=== PATIENT | male | born 1990 | race Caucasian/White ===

== ENCOUNTER 2019-05-12 20:08 | Observation (INO) ==
[2019-05-12] MEDS ORDERED: Morphine Sulfate 2 MG/ML SYRINGE IVP ONE (20:48)
[2019-05-12] MEDS ORDERED: Ondansetron 4 MG/2 ML VIAL IVP ONE (20:51)
[2019-05-12] MEDS ORDERED: 0.9 % Sodium Chloride 1,000 ML IVC ONE (20:55)
[2019-05-12] MEDS ORDERED: Isovue-370 500 ML BOTTLE IVP ONE (21:08)
--- NOTE | 2019-05-12 21:10 | Emergency Department Note ---
Disposition Clinical Impression: Bowel obstruction Qualifiers: Intestinal obstruction type: unspecified Intestinal obstruction extent: complete Qualified Code(s): K56.601 - Complete intestinal obstruction, unspecified as to cause Disposition: Admitted As Inpatient Condition: Fair Time of Disposition: 23:28 General Adult HPI - General Chief complaint: ED Abdominal Pain Stated complaint: abd pain Time Seen by Provider: 05/12/19 20:37 Source: patient Limitations: no limitations - History of Present Illness Pain Scale: 10 - Related Data Home Medications Medication Instructions Recorded Confirmed No Known Home Drugs 05/12/19 05/12/19 Allergies Allergy/AdvReac Type Severity Reaction Status Date / Time No Known Allergies Allergy Verified 07/04/18 12:24 Past Medical History - Past Medical History Medical history: Reports: non-contributory Surgical history: Reports: no surgical history Psychiatric history: Reports: anxiety, bipolar, depression - Social History Smoking Status: Current every day smoker Smokeless Tobacco Status: No Alcohol use: Reports: none Drug use: Reports: marijuana Physical Exam - General Limitations: no limitations General appearance: alert, in no apparent distress Course Vital Signs Temperature 98.7 F 05/12/19 20:09 Pulse Rate 70 05/12/19 20:09 Respiratory Rate 18 05/12/19 20:09 Blood Pressure 145/63 05/12/19 20:09 O2 Sat by Pulse Oximetry 96 05/12/19 20:09 Temperature 98.9 F 05/12/19 22:39 Pulse Rate 95 05/12/19 22:39 Respiratory Rate 20 05/12/19 22:39 Blood Pressure 153/83 05/12/19 22:39 O2 Sat by Pulse Oximetry 97 05/12/19 21:18 Oxygen Delivery Oxygen Delivery Room Air Medical Decision Making - Lab Data Result diagrams: 05/12/19 21:09 05/12/19 21:09 Lab Results 05/12/19 05/12/19 05/12/19 Range/Units 21:09 21:09 22:18 WBC 14.3 H (4.3-11.1) K/mcL RBC 4.86 (4.19-5.50) M/mcL Hgb 14.0 (12.9-16.9) g/dL Hct 41.0 (37.5-50.1) % MCV 84.4 (83.0-100.0) fL MCH 28.8 (28.0-33.3) pg MCHC 34.1 (31.6-35.5) g/dL RDW 12.8 (11.5-14.5) % Plt Count 155 (140-400) K/mcL MPV 10.9 (9.4-12.4) fL Immature Gran % 0.5 (0-4) % Seg Neutrophils % 77.2 % Lymphocytes % 13.8 % Monocytes % 6.4 % Eosinophils % 1.5 % Basophils % 0.6 % Neutrophils # 11.1 H (1.6-8.9) K/mcL Lymphocytes # 2.0 (0.6-4.6) K/mcL Monocytes # 0.9 (0.0-1.3) K/mcL Eosinophils # 0.2 (0.0-0.6) K/mcL Basophils # 0.1 (0.0-0.2) K/mcL Sodium 139 (136-145) mEq/L Potassium 3.7 (3.5-5.1) mEq/L Chloride 107 (98-107) mEq/L Carbon Dioxide 23 (23-29) mEq/L BUN 18 (6-20) mg/dL Creatinine 1.17 (0.70-1.30) mg/dL Est GFR ( Amer) > 60 (> 60) Est GFR (Non-Af Amer) > 60 (> 60) BUN/Creatinine Ratio 15 (6-26) Glucose 122 H (70-105) mg/dL Calculated Osmolality 291 (280-300) Calcium 9.6 (8.6-10.3) mg/dL Total Bilirubin 0.7 (0.3-1.0) mg/dL Direct Bilirubin 0.1 (0.0-0.2) mg/dL Indirect Bilirubin 0.6 (0.0-1.2) mg/dL AST 17 (13-39) Units/L ALT 9 (7-52) Units/L Alkaline Phosphatase 62 (34-104) Units/L Serum Total Protein 6.9 (6.4-8.9) g/dL Albumin 4.9 (3.5-5.7) g/dL Globulin 2.0 L (2.4-3.5) g/dL Albumin/Globulin Ratio 2.5 H (1.1-2.2) Lipase 46 (11-82) Units/L Urine Color Yellow (Yellow) Urine Clarity Cloudy A (Clear) Urine pH 6.0 (5.0-8.0) pH Units Ur Specific [place] 1.027 H (1.010-1.025) Urine Protein Trace (Neg-Trace) mg/dL Urine Glucose (UA) Normal (Normal) mg/dL Urine Ketones Negative (Negative) mg/dL Urine Blood Large H (Negative) Urine Nitrite Negative (Negative) Urine Bilirubin Negative (Negative) Urine Urobilinogen Normal (Normal) mg/dL Ur Leukocyte Esterase Negative (Negative) Urine Microscopic RBC 50-100 H (0-3) per hpf Urine Microscopic WBC 0-3 (0-3) per hpf Ur Squamous Epith Cells Moderate H (None-Few) per lpf Urine Bacteria None Seen (None-Few) per hpf Hyaline Casts None Seen (None-Few) per lpf Ur Culture Indicated? NO (NO) Attestation Statement - Attestation Attestation: I examined this patient and my medical decision-making was reviewed with the Re sident Physician. I agree with the documented findings, disposition and treatment plan as described except to the extent set forth below. Patient to the ED with a chief complaint of right lower abdominal pain. Increasing over the past month. On examination the patient's extreme tenderness and guarding on the right lower abdomen. Plan. Basic labs and CT scan. CT scan reviewed has a small bowel obstruction. Labs reviewed as well. Pain is improved. Patient is admitted to general surgery. Requesting NG tube. Abdomen/Pelvis CT 05/12/19 21:08 IMPRESSION: 1. Dilated loops of small bowel within the pelvis with two relative transition points in close proximity to each other raising the possibility of a closed loop obstruction. D/ / Norm Lechuga MD / Norm Lechuga MD Interpreting Provider: Norm Lechuga MD
[2019-05-12] MEDS ORDERED: Hyoscyamine SL 0.125 MG TAB.SUBL SL STA (21:19)
[2019-05-12 21:20] LABS: Basophils # 0.1 K/mcL (0.0-0.2); Basophils % 0.6 %; Eosinophils # 0.2 K/mcL (0.0-0.6); Eosinophils % 1.5 %; Immature Granulocytes % 0.5 % (0-4); Lymphocytes % 13.8 %; Mean Corpuscular HGB Conc 34.1 g/dL (31.6-35.5); Mean Corpuscular Hemoglobin 28.8 pg (28.0-33.3); Mean Corpuscular Volume 84.4 fL (83.0-100.0); Mean Platelet Volume 10.9 fL (9.4-12.4); Monocytes # 0.9 K/mcL (0.0-1.3); Monocytes % 6.4 %; Neutrophils # 11.1 K/mcL (1.6-8.9); Platelet Count 155 K/mcL (140-400); Red Blood Count 4.86 M/mcL (4.19-5.50); Red Cell Distribution Width 12.8 % (11.5-14.5); Segmented Neutrophils % 77.2 %; White Blood Count 14.3 K/mcL (4.3-11.1)
[2019-05-12] MEDS ORDERED: *HR* HYDROmorphone (PF) 1 MG/ML SYRINGE IVP ONE ×2 (21:29→22:48)
[2019-05-12 21:40] LABS: Alanine Aminotransferase 9 Units/L (7-52); Albumin 4.9 g/dL (3.5-5.7); Albumin/Globulin Ratio 2.5 (1.1-2.2); Alkaline Phosphatase 62 Units/L (34-104); Aspartate Amino Transferase 17 Units/L (13-39); BUN/Creatinine Ratio 15 (6-26); Bilirubin,Direct 0.1 mg/dL (0.0-0.2); Bilirubin,Indirect 0.6 mg/dL (0.0-1.2); Bilirubin,Total 0.7 mg/dL (0.3-1.0); Blood Urea Nitrogen 18 mg/dL (6-20); Calcium 9.6 mg/dL (8.6-10.3); Carbon Dioxide 23 mEq/L (23-29); Chloride 107 mEq/L (98-107); Glucose 122 mg/dL (70-105); Lipase 46 Units/L (11-82); Osmolality,Calculated 291 (280-300); Potassium 3.7 mEq/L (3.5-5.1); Sodium 139 mEq/L (136-145); Total Protein 6.9 g/dL (6.4-8.9); eGFR For African Americans > 60 (> 60); eGFR For Non-African Americans > 60 (> 60)
[2019-05-12 22:29] LABS: Bilirubin,Urine Negative (Negative); Blood,Urine Large (Negative); Clarity,Urine Cloudy (Clear); Color,Urine Yellow (Yellow); Glucose,Urine (UA) Normal (Normal); Ketones,Urine Negative (Negative); Leukocyte Esterase,Urine Negative (Negative); Nitrite,Urine Negative (Negative); Protein,Urine Trace mg/dL (Neg-Trace); Specific Gravity,Urine 1.027 (1.010-1.025); Urobilinogen,Urine Normal (Normal)
[2019-05-12 22:31] LABS: Bacteria,Urine None Seen per hpf (None-Few); Hyaline Casts,Urine None Seen per lpf (None-Few); RBC,Urine 50-100 per hpf (0-3); Squamous Epithelial Cell,Urine Moderate per lpf (None-Few); WBC,Urine 0-3 per hpf (0-3)
[2019-05-12] MEDS ORDERED: Piperacillin/Tazobactam 3.375 GM in Water for inj. (sterile) 20 ML IVP ONE (22:54)
--- NOTE | 2019-05-12 22:58 | Emergency Department Note ---
Disposition Clinical Impression: Bowel obstruction Qualifiers: Intestinal obstruction type: unspecified Intestinal obstruction extent: complete Qualified Code(s): K56.601 - Complete intestinal obstruction, unspecified as to cause Disposition: Admitted As Inpatient Condition: Fair Time of Disposition: 22:57 General Adult HPI - General Chief complaint: ED Abdominal Pain Stated complaint: abd pain Time Seen by Provider: 05/12/19 20:37 Source: patient Mode of arrival: ambulatory Limitations: no limitations Nursing Notes Reviewed: Yes Vital Signs Reviewed: Yes - History of Present Illness HPI Narrative: Patient is a 29-year-old male with a past medical history of breast reduction surgery due to medication is on his younger otherwise no other surgical history presents the ED for evaluation of right lower and right upper abdominal pain has been going on over the past 4 weeks. He states in the past week has became worse and has increased in intensity over the past 2 days. He describes as a sharp stabbing waxing and waning pain that is currently a 10/10. States nausea but no emesis. He had a bowel movement yesterday. Denies any urinary symptoms or diarrhea. Denies testicular pain. Pain Scale: 9 - Related Data Home Medications Medication Instructions Recorded Confirmed No Known Home Drugs 05/12/19 05/12/19 Allergies Allergy/AdvReac Type Severity Reaction Status Date / Time No Known Allergies Allergy Verified 07/04/18 12:24 All systems ED: reviewed and negative except as stated. Review of Systems: As Per HPI Constitutional: Denies: fever, chills Cardiovascular: Denies: chest pain, palpitations, dyspnea on exertion Respiratory: Denies: cough, dyspnea, wheezes Gastrointestinal: Reports: abdominal pain, nausea. Denies: vomiting, diarrhea, constipation, hematemesis, melena Genitourinary: Denies: urgency, dysuria Musculoskeletal: Denies: back pain, neck pain Integumentary: Denies: rash Past Medical History - Past Medical History Attestation: Yes The following information was validated with the patient. Medical history: Reports: non-contributory Surgical history: Reports: no surgical history Psychiatric history: Reports: anxiety, bipolar, depression - Social History Smoking Status: Current every day smoker Smokeless Tobacco Status: No Alcohol use: Reports: none Drug use: Reports: marijuana Physical Exam - General Limitations: no limitations General appearance: alert, in no apparent distress - Head Head exam: atraumatic, normocephalic, normal inspection - Eye Eye exam: Present: normal appearance, PERRL, EOMI - ENT ENT exam: normal exam, normal oropharynx, mucous membranes moist - Neck Neck exam: Present: normal inspection, full ROM, trachea midline - Chest Chest inspection: Present: normal inspection, symmetric chest wall rise - Respiratory Respiratory exam: Present: normal lung sounds bilaterally. Absent: respiratory distress, wheezes - Cardiovascular Cardiovascular exam: Present: regular rate, normal rhythm, normal heart sounds, +S1, +S2 - Abdominal Exam Abdominal exam: Present: tenderness, guarding, normal bowel sounds. Absent: rebound, rigidity Abdominal tenderness: Present: RUQ, RLQ - Extremities Exam Extremities exam: Present: normal inspection, full ROM. Absent: tenderness, pedal edema - Back Exam Back exam: Present: normal inspection, full ROM. Absent: tenderness - Neurological Exam Neurological exam: Present: alert, oriented X3 - Psychiatric Psychiatric exam: Present: normal affect, normal mood - Skin Skin exam: Present: warm, dry, intact, normal color Course Course Narrative: Patient undergo evaluation with a CT scan of the abdomen and pelvis. Attempted to perform a bedside ultrasound to evaluate his gallbladder was difficult due to his pain. We will attempt pain management. We will also give him something for his nausea. Continue the time is for cholecystitis versus small bowel obstructi on versus kidney stone. - Reevaluation(s) Reevaluation #1: Patient CAT scan is concerning for a closed loop small bowel obstruction. I discussed the patient's case with the surgeon, Dr. Hastings, discussed the patient's CT findings she recommended placement of an NG tube to low to intermittent suction as well as a dose of Zosyn antibiotics and maintenance IV fluids. She also requested that the floor call her when the patient arrives to she can place further orders. I discussed this with the patient he agrees with that plan. Time: 22:57 Vital Signs Temperature 98.7 F 05/12/19 20:09 Pulse Rate 70 05/12/19 20:09 Respiratory Rate 18 05/12/19 20:09 Blood Pressure 145/63 05/12/19 20:09 O2 Sat by Pulse Oximetry 96 05/12/19 20:09 Temperature 98.9 F 05/12/19 22:39 Pulse Rate 95 05/12/19 22:39 Respiratory Rate 20 05/12/19 22:39 Blood Pressure 153/83 05/12/19 22:39 O2 Sat by Pulse Oximetry 97 05/12/19 21:18 Oxygen Delivery Oxygen Delivery Room Air Medical Decision Making - Medical Records Medical records reviewed: Yes I reviewed the patient's medical records. - Lab Data Lab results reviewed: Yes I reviewed the patient's lab results. Result diagrams: 05/12/19 21:09 05/12/19 21:09 Lab Results 05/12/19 05/12/19 05/12/19 Range/Units 21:09 21:09 22:18 WBC 14.3 H (4.3-11.1) K/mcL RBC 4.86 (4.19-5.50) M/mcL Hgb 14.0 (12.9-16.9) g/dL Hct 41.0 (37.5-50.1) % MCV 84.4 (83.0-100.0) fL MCH 28.8 (28.0-33.3) pg MCHC 34.1 (31.6-35.5) g/dL RDW 12.8 (11.5-14.5) % Plt Count 155 (140-400) K/mcL MPV 10.9 (9.4-12.4) fL Immature Gran % 0.5 (0-4) % Seg Neutrophils % 77.2 % Lymphocytes % 13.8 % Monocytes % 6.4 % Eosinophils % 1.5 % Basophils % 0.6 % Neutrophils # 11.1 H (1.6-8.9) K/mcL Lymphocytes # 2.0 (0.6-4.6) K/mcL Monocytes # 0.9 (0.0-1.3) K/mcL Eosinophils # 0.2 (0.0-0.6) K/mcL Basophils # 0.1 (0.0-0.2) K/mcL Sodium 139 (136-145) mEq/L Potassium 3.7 (3.5-5.1) mEq/L Chloride 107 (98-107) mEq/L Carbon Dioxide 23 (23-29) mEq/L BUN 18 (6-20) mg/dL Creatinine 1.17 (0.70-1.30) mg/dL Est GFR ( Amer) > 60 (> 60) Est GFR (Non-Af Amer) > 60 (> 60) BUN/Creatinine Ratio 15 (6-26) Glucose 122 H (70-105) mg/dL Calculated Osmolality 291 (280-300) Calcium 9.6 (8.6-10.3) mg/dL Total Bilirubin 0.7 (0.3-1.0) mg/dL Direct Bilirubin 0.1 (0.0-0.2) mg/dL Indirect Bilirubin 0.6 (0.0-1.2) mg/dL AST 17 (13-39) Units/L ALT 9 (7-52) Units/L Alkaline Phosphatase 62 (34-104) Units/L Serum Total Protein 6.9 (6.4-8.9) g/dL Albumin 4.9 (3.5-5.7) g/dL Globulin 2.0 L (2.4-3.5) g/dL Albumin/Globulin Ratio 2.5 H (1.1-2.2) Lipase 46 (11-82) Units/L Urine Color Yellow (Yellow) Urine Clarity Cloudy A (Clear) Urine pH 6.0 (5.0-8.0) pH Units Ur Specific [place] 1.027 H (1.010-1.025) Urine Protein Trace (Neg-Trace) mg/dL Urine Glucose (UA) Normal (Normal) mg/dL Urine Ketones Negative (Negative) mg/dL Urine Blood Large H (Negative) Urine Nitrite Negative (Negative) Urine Bilirubin Negative (Negative) Urine Urobilinogen Normal (Normal) mg/dL Ur Leukocyte Esterase Negative (Negative) Urine Microscopic RBC 50-100 H (0-3) per hpf Urine Microscopic WBC 0-3 (0-3) per hpf Ur Squamous Epith Cells Moderate H (None-Few) per lpf Urine Bacteria None Seen (None-Few) per hpf Hyaline Casts None Seen (None-Few) per lpf Ur Culture Indicated? NO (NO) - Radiology Data Radiology results reviewed: Yes I reviewed the patient's radiology results. Abdomen/Pelvis CT 05/12/19 21:08 IMPRESSION: 1. Dilated loops of small bowel within the pelvis with two relative transition points in close proximity to each other raising the possibility of a closed loop obstruction. D/ / Norm Lechuga MD / Norm Lechuga MD Interpreting Provider: Norm Lechuga MD
[2019-05-12] MEDS: 0.9 % Sodium Chloride 1,000 ML IVC SCH (23:18)
[2019-05-12] MEDS ORDERED: Ondansetron 4 MG/2 ML VIAL IVP PRN (23:53)
[2019-05-13] MEDS: Piperacillin/Tazobactam 3.375 GM in 0.9 % Sodium Chloride Mini Bag 100 ML IVPB SCH ×3 (05:54→23:09)
[2019-05-13 06:36] LABS: Basophils # 0.1 K/mcL (0.0-0.2); Basophils % 0.9 %; Eosinophils # 0.3 K/mcL (0.0-0.6); Eosinophils % 2.7 %; Hemoglobin 11.9 g/dL (12.9-16.9); Immature Granulocytes % 0.3 % (0-4); Lymphocytes # 2.6 K/mcL (0.6-4.6); Lymphocytes % 28.2 %; Mean Corpuscular HGB Conc 33.1 g/dL (31.6-35.5); Mean Corpuscular Hemoglobin 29.1 pg (28.0-33.3); Monocytes # 0.8 K/mcL (0.0-1.3); Neutrophils # 5.4 K/mcL (1.6-8.9); Platelet Count 125 K/mcL (140-400); Red Blood Count 4.09 M/mcL (4.19-5.50); Red Cell Distribution Width 12.9 % (11.5-14.5); Segmented Neutrophils % 58.9 %; White Blood Count 9.1 K/mcL (4.3-11.1)
--- NOTE | 2019-05-13 06:45 | Acute Care Surgery H&P ---
Date of Encounter: 05/13/19 Time of Encounter: 05:00 Assessment and Plan (1) Small bowel obstruction Current Visit: Yes Status: Acute The assessment and plan as outlined above was discussed with the patient and/or family members who expressed understanding and agreement. All questions were answered. Admit for IVF/NPO/NGT. Pt is already improving since admission. Will continue GI decompression until increased bowel function. May check gastrograffin SBFT to ensure no SBO d/t suggestion of closed loop obstruction on CT. WBC 14 on admission, 9 today. History of Present Illness Chief complaint: abdominal pain, nausea and vomiting HPI: This 29 y/o pt presents to [facility] ED c/o severe abdominal pain. Pt reports pain is predominantly in the midabdomen. Pain doesn''t radiate. Pt reports pain has been present for over a month. He states that the intermittent low grade pain worsened to the point of intolerence yesterday. Now, the pain is constant and severe. Pt reports intractable nausea and vomiting. Pt denies hematemesis or coffee ground emesis. He thinks he ate shard of metal from a can last month. Pt reports flatus and feels urge for BM now. However, last BM was a day ago. Prior to admission flatus was decreasing noticably. Pt denies hematochezia or melena. Reports decreased appetite. Denies fever. Past Med Surg Social Fam HX - Past Medical History Medical history: non-contributory Psychiatric history: anxiety, bipolar, depression - Past Surgical History Surgical History: no surgical history - Social History Smoking Status: Current every day smoker Smokeless Tobacco Status: No Alcohol use: none Drug use: marijuana - Family History Father Living Status: Age at : 50 Hx Family Cancer: Yes Medications and Allergies No Known Home Drugs 05/12/19 [History] Allergy/AdvReac Type Severity Reaction Status Date / Time No Known Allergies Allergy Verified 07/04/18 12:24 Review of Systems All systems PM: The remainder of the systems were reviewed and are negative - Constitutional no anorexia, no chills, no fatigue, no fever(s), no malaise, no weakness, no weight loss - EENT Nose, mouth and throat: no dizziness, no dry mouth, no nasal congestion, no nasal discharge, no sinus pain, no sinus pressure, no sore throat - Cardiovascular no chest pain, no diaphoresis, no dyspnea, no edema - Respiratory no cough, no dyspnea, no wheezing - Gastrointestinal abdominal pain, belching, bloating, constipation, cramping, nausea, vomiting, no diarrhea - Genitourinary no dysuria, no flank pain, no urinary frequency - Musculoskeletal no back pain, no joint swelling, no limited range of motion, no neck pain - Integumentary no dry skin, no pruritus, no rash, no wounds, no jaundice - Neurological no dizziness, no focal weakness, no weakness - Endocrine no fatigue - Hematologic/Lymphatic no easy bleeding, no easy bruising General Surgery Exam Initial Vital Signs Temp Pulse Resp BP Pulse Ox 98.7 F 70 18 145/63 96 05/12/19 20:09 05/12/19 20:09 05/12/19 20:09 05/12/19 20:09 05/12/19 20:09 - General physical appearance well developed, well nourished, moderate distress, no pain (resolved since admission). negative: jaundice - Eyes negative: PERRL, normal ocular movement, icteric - ENT no congestion, dry mucosa. negative: nasal discharge - Neck trachea midline, no lymphadectomy, no venous distension - Respiratory normal respiratory effort, clear to auscultation - Cardiovascular Cardiovascular exam: Present: RRR. Absent: murmurs, JVD - Abdomen Abdomen general surgery: Present: non tender. Absent: tympanic, distended, guarding, rebound - Genitourinary Present: normal penis with no external lesions - Integumentary Integumentary general surgery: Present: warm and dry - Neurologic Present: CN 2-12 grossly intact, normal coordination - Musculoskeletal Present: normal gait, normal posture - Psychiatric Psychiatric general surgery: Present: A&Ox3, appropriate Results - Labs 05/13/19 06:22 05/12/19 21:09 Abnormal lab results WBC 14.3 K/mcL (4.3-11.1) H 05/12/19 21:09 RBC 4.09 M/mcL (4.19-5.50) L 05/13/19 06:22 Hgb 11.9 g/dL (12.9-16.9) L D 05/13/19 06:22 Hct 36.0 % (37.5-50.1) L 05/13/19 06:22 Plt Count 125 K/mcL (140-400) L 05/13/19 06:22 11.1 K/mcL (1.6-8.9) H 05/12/19 21:09 Glucose 122 mg/dL (70-105) H 05/12/19 21:09 2.0 g/dL (2.4-3.5) L 05/12/19 21:09 2.5 (1.1-2.2) H 05/12/19 21:09 Cloudy (Clear) A 05/12/19 22:18 Ur Specific [place] 1.027 (1.010-1.025) H 05/12/19 22:18 Large (Negative) H 05/12/19 22:18 50-100 per hpf (0-3) H 05/12/19 22:18 Ur Squamous Epith Cells Moderate per lpf (None-Few) H 05/12/19 22:18 Diabetes panel 05/12/19 Range/Units 21:09 Sodium 139 (136-145) mEq/L Potassium 3.7 (3.5-5.1) mEq/L Chloride 107 (98-107) mEq/L Carbon Dioxide 23 (23-29) mEq/L BUN 18 (6-20) mg/dL Creatinine 1.17 (0.70-1.30) mg/dL Glucose 122 H (70-105) mg/dL Calcium 9.6 (8.6-10.3) mg/dL AST 17 (13-39) Units/L ALT 9 (7-52) Units/L Alkaline Phosphatase 62 (34-104) Units/L Albumin 4.9 (3.5-5.7) g/dL Calcium panel 05/12/19 Range/Units 21:09 Calcium 9.6 (8.6-10.3) mg/dL Albumin 4.9 (3.5-5.7) g/dL Pituitary panel 05/12/19 Range/Units 21:09 Sodium 139 (136-145) mEq/L Potassium 3.7 (3.5-5.1) mEq/L Chloride 107 (98-107) mEq/L Carbon Dioxide 23 (23-29) mEq/L BUN 18 (6-20) mg/dL Creatinine 1.17 (0.70-1.30) mg/dL Glucose 122 H (70-105) mg/dL Calcium 9.6 (8.6-10.3) mg/dL Adrenal panel 05/12/19 Range/Units 21:09 Sodium 139 (136-145) mEq/L Potassium 3.7 (3.5-5.1) mEq/L Chloride 107 (98-107) mEq/L Carbon Dioxide 23 (23-29) mEq/L BUN 18 (6-20) mg/dL Creatinine 1.17 (0.70-1.30) mg/dL Glucose 122 H (70-105) mg/dL Calcium 9.6 (8.6-10.3) mg/dL Total Bilirubin 0.7 (0.3-1.0) mg/dL AST 17 (13-39) Units/L ALT 9 (7-52) Units/L Alkaline Phosphatase 62 (34-104) Units/L Albumin 4.9 (3.5-5.7) g/dL All other labs normal. - Imaging CT scan - abdomen: image reviewed (suggestive of closed loop bowel obstruction) CT scan - pelvis: image reviewed
[2019-05-13] MEDS: Acetaminophen IV 1,000 MG/100 ML INFUS..BTL IVPB SCH ×4 (12:55→23:05)
[2019-05-13] MEDS: 0.9 % Sodium Chloride 1,000 ML IVC SCH ×3 (13:36→22:48)
--- NOTE | 2019-05-13 17:14 | Event Note ---
Date of Encounter: 05/13/19 Time of Encounter: 17:11 Rn notified this COST CLERK of pt's HR in the 40s and pt was drowsy. EKG obtained noted SR without ectopic beats or heart block noted. Pt placed on telemetry and we would continue to observe, but this is most likely related to pt pain is improved and he is otherwise healthy young man and resting HR in the 39-50s is of little concern given that he is asymptomatic. RN notified attending surgeon who stated the same. This COST CLERK assessed patient at bedside. He states his pain is significantly improved from admission, denies chest pain, lightheadedness, dizziness, feelings of syncope, or shortness of breath. 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 We will continue to monitor.
[2019-05-13] MEDS: Nicotine 14 MG PATCH.TD24 TD SCH (19:07)
[2019-05-13] MEDS ORDERED: Piperacillin/Tazobactam 3.375 GM VIAL ONE (22:52)
[2019-05-14] MEDS: Acetaminophen IV 1,000 MG/100 ML INFUS..BTL IVPB SCH ×2 (05:30→12:14)
[2019-05-14] MEDS: 0.9 % Sodium Chloride 1,000 ML IVC SCH (06:45)
[2019-05-14 06:53] LABS: Basophils # 0.1 K/mcL (0.0-0.2); Basophils % 1.2 %; Eosinophils # 0.4 K/mcL (0.0-0.6); Eosinophils % 6.8 %; Hematocrit 34.6 % (37.5-50.1); Hemoglobin 11.5 g/dL (12.9-16.9); Immature Granulocytes % 0.4 % (0-4); Lymphocytes # 2.2 K/mcL (0.6-4.6); Mean Corpuscular HGB Conc 33.2 g/dL (31.6-35.5); Mean Corpuscular Volume 87.2 fL (83.0-100.0); Mean Platelet Volume 11.8 fL (9.4-12.4); Monocytes # 0.6 K/mcL (0.0-1.3); Neutrophils # 2.4 K/mcL (1.6-8.9); Platelet Count 121 K/mcL (140-400); Red Blood Count 3.97 M/mcL (4.19-5.50); Red Cell Distribution Width 12.7 % (11.5-14.5); Segmented Neutrophils % 42.6 %; White Blood Count 5.6 K/mcL (4.3-11.1)
[2019-05-14 07:11] LABS: BUN/Creatinine Ratio 10 (6-26); Blood Urea Nitrogen 11 mg/dL (6-20); Calcium 8.7 mg/dL (8.6-10.3); Carbon Dioxide 27 mEq/L (23-29); Chloride 108 mEq/L (98-107); Glucose 86 mg/dL (70-105); Osmolality,Calculated 291 (280-300); Potassium 3.9 mEq/L (3.5-5.1); Sodium 141 mEq/L (136-145); eGFR For African Americans > 60 (> 60); eGFR For Non-African Americans > 60 (> 60)
[2019-05-14] MEDS: Nicotine 14 MG PATCH.TD24 TD SCH (08:56)
[2019-05-14] MEDS: Piperacillin/Tazobactam 3.375 GM in 0.9 % Sodium Chloride Mini Bag 100 ML IVPB SCH (08:56)
--- NOTE | 2019-05-14 10:04 | AcuteCareSurgery Progress Note ---
Date of Encounter: 05/14/19 Time of Encounter: 07:15 - Assessment and Plan (1) Small bowel obstruction Current Visit: Yes Status: Acute No evidence of small bowel obstruction. The patient has had resolution of his symptoms. Small bowel follow-through was negative. He is had subsequent bowel movements. Advanced regular diet. Discharge later today if he tolerates dietary trial Subjective Narrative: The patient is seen and evaluated on morning rounds with the acute care surgery team. He is had several bowel movements. Bowel sounds are normal. He has no nausea or vomiting. We will advance to regular diet. If he does well today at breakfast and lunch she will be discharged this afternoon. It is noted that he had episodes of bradycardia last evening. This initially was asymptomatic, however, he did have some right-sided chest pain. There is no evidence of hypoxia. He did have chest x-ray which was normal. Today he is completely asymptomatic. I believe that this is a benign finding. He is to contact his primary care doctor if his bradycardia continues. Objective Vital Signs - Last 8 Hours Temp Pulse Resp BP Pulse Ox 05/14/19 06:52 97.9 F 48 16 115/68 99 05/14/19 04:07 97.6 F 42 14 109/59 98 Intake and Output 05/13/19 05/14/19 05/14/19 23:59 07:59 15:59 Intake Total 1560 / 2760 1300 / 1300 Output Total 500 / 1200 0 / 0 Balance 1060 / 1560 1300 / 1300 Intake: IV Fluids 1200 / 2400 1300 / 1300 0.9 % Sodium Chloride 1,000 ML 1000 / 2000 1000 / 1000 @ 125 mls/hr IVC .Q8H [facility] Rx#: [id number] Ofirmev 1,000 mg/100 ml 1,000 100 / 200 200 / 200 mg In 100 ml @ 400 mls/hr IVPB Q6HR [facility] Rx#:[id number] Zosyn 3.375 GM In 0.9 % Sodium 100 / 200 100 / 100 Chloride (Mini-Bag +) 100 ML @ 25 mls/hr IVPB Q8HR [facility]STAL Rx#: [id number] Oral 360 / 360 0 / 0 Output: Urine 500 / 1200 0 / 0 Other: Weight 60.1 kg Blood Glucose* 140 Patient Weight 05/14/19 23:59 Weight 60.1 kg - General physical appearance well developed, well nourished, no distress, no pain - Respiratory normal expansion, normal respiratory effort, clear to percussion, clear to auscultation - Cardiovascular Cardiovascular exam: Present: RRR, no murmurs/rubs/gallops - Abdomen Abdomen: Present: bowel sounds present, soft, non tender - Integumentary no rash, no growths, no abnormal pigmentation - Neurologic normal coordination, normal sensation - Psychiatric oriented to time, oriented to person, oriented to place, speech is normal, memory intact - Labs 05/14/19 05:58 05/14/19 05:58 Diabetes panel 05/14/19 Range/Units 05:58 Sodium 141 (136-145) mEq/L Potassium 3.9 (3.5-5.1) mEq/L Chloride 108 H (98-107) mEq/L Carbon Dioxide 27 (23-29) mEq/L BUN 11 (6-20) mg/dL Creatinine 1.12 (0.70-1.30) mg/dL Glucose 86 (70-105) mg/dL Calcium 8.7 (8.6-10.3) mg/dL Calcium panel 05/14/19 Range/Units 05:58 Calcium 8.7 (8.6-10.3) mg/dL Pituitary panel 05/14/19 Range/Units 05:58 Sodium 141 (136-145) mEq/L Potassium 3.9 (3.5-5.1) mEq/L Chloride 108 H (98-107) mEq/L Carbon Dioxide 27 (23-29) mEq/L BUN 11 (6-20) mg/dL Creatinine 1.12 (0.70-1.30) mg/dL Glucose 86 (70-105) mg/dL Calcium 8.7 (8.6-10.3) mg/dL Adrenal panel 05/14/19 Range/Units 05:58 Sodium 141 (136-145) mEq/L Potassium 3.9 (3.5-5.1) mEq/L Chloride 108 H (98-107) mEq/L Carbon Dioxide 27 (23-29) mEq/L BUN 11 (6-20) mg/dL Creatinine 1.12 (0.70-1.30) mg/dL Glucose 86 (70-105) mg/dL Calcium 8.7 (8.6-10.3) mg/dL Consult Discharge Plan - Plan Referrals: NONE,PCP [Primary Care Provider] -
--- NOTE | 2019-05-14 10:39 | Discharge Summary ---
- NOTES TO OUTPATIENT PROVIDER Notes to Outpatient Provider: Partial small bowel obstruction resolved without surgery. The patient did have asymptomatic bradycardia during hospitalization. Orders not resulted at time of discharge: Pending orders 05/13/19 15:20 EKG [ECG 12 lead ECG] [ECG] Stat Date of Encounter: 05/14/19 Time of Encounter: 10:20 - Discharge Diagnosis (1) Small bowel obstruction Priority: Primary Status: Acute Comments: Partial small bowel obstruction appears to have resolved spontaneously without surgical intervention. General Surgery Exam Initial Vital Signs Temp Pulse Resp BP Pulse Ox 98.7 F 70 18 145/63 96 05/12/19 20:09 05/12/19 20:09 05/12/19 20:09 05/12/19 20:05/12/19 20:09 - General physical appearance well developed, well nourished, no distress - Respiratory normal expansion, normal respiratory effort, clear to percussion, clear to auscultation - Cardiovascular Cardiovascular exam: Present: RRR, no murmurs/rubs/gallops - Abdomen Abdomen general surgery: Present: bowel sounds present, soft, non tender - Neurologic Present: CN 2-12 grossly intact, normal coordination, normal sensation - Psychiatric Psychiatric general surgery: Present: appropriate, oriented to person, oriented to place, oriented to time, speech is normal, memory intact - Hospital Course Hospital course: Mr. Lira is a 29 year old male Was admitted with nasogastric decompression afford appeared to be a partial bowel obstruction. This resolved spontaneously. The patient is tolerating regular diet. It is noted that he had episodes of bradycardia in the high 30s. This appeared to be asymptomatic. EKG demonstrated sinus bradycardia. Chest x-ray was negative. The patient did not develop any hypoxia. - Time Spent with Patient Total time spent providing and/or coordinating discharge services: 30 minutes Less than 30 minutes Specific discharge activities: Continue to watch for new onset nausea and vomiting. If the patient develops new onset nausea and vomiting return to the emergency room - Discharge Medications Prescriptions: No Action Naproxen Sodium [Aleve] 220 mg PO 2-4XD PRN PRN Reason: Pain Home Medications: Naproxen Sodium [Aleve] 220 mg PO 2-4XD PRN 05/13/19 [History] Allergies/Adverse Reactions: Allergy/AdvReac Type Severity Reaction Status Date / Time No Known Allergies Allergy Verified 05/13/19 14:36 Date of admission: 05/12/19 23:03 Primary care physician: PCP NONE Consults: 05/13/19 00:23 Consult to Nutrition [CONS] Routine Comment: Consulting Provider: NUTRITION Reason for Dietary Consult: MST Score Consult to Preparation Center Coordinator [CONS] Routine Reason for SW Consult: community resources Discharging clinician: Agustin Buckley Anticipated date of discharge: 05/14/19 Labs on day of discharge: Labs from last 24 hours 05/14/19 05/14/19 05/13/19 05:58 05:58 17:06 WBC 5.6 RBC 3.97 L Hgb 11.5 L Hct 34.6 L MCV 87.2 MCH 29.0 MCHC 33.2 RDW 12.7 Plt Count 121 L MPV 11.8 Immature Gran % 0.4 Seg Neutrophils % 42.6 Lymphocytes % 39.0 Monocytes % 10.0 Eosinophils % 6.8 Basophils % 1.2 Neutrophils # 2.4 Lymphocytes # 2.2 Monocytes # 0.6 Eosinophils # 0.4 Basophils # 0.1 Sodium 141 Potassium 3.9 Chloride 108 H Carbon Dioxide 27 BUN 11 Creatinine 1.12 Est GFR ( Amer) > 60 Est GFR (Non-Af Amer) > 60 BUN/Creatinine Ratio 10 Glucose 86 POC Glucose 140 H Calculated Osmolality 291 Calcium 8.7 05/13/19 05/13/19 11:44 07:00 WBC RBC Hgb Hct MCV MCH MCHC RDW Plt Count MPV Immature Gran % Seg Neutrophils % Lymphocytes % Monocytes % Eosinophils % Basophils % Neutrophils # Lymphocytes # Monocytes # Eosinophils # Basophils # Sodium Potassium Chloride Carbon Dioxide BUN Creatinine Est GFR ( Amer) Est GFR (Non-Af Amer) BUN/Creatinine Ratio Glucose POC Glucose 99 85 Calculated Osmolality Calcium - Impressions ITS Impressions Abdomen/Pelvis CT 05/12/19 21:08 IMPRESSION: 1. Dilated loops of small bowel within the pelvis with two relative transition points in close proximity to each other raising the possibility of a closed loop obstruction. D/ / Nomr Lechuga MD / Norm Lechuga MD Interpreting Provider: Norm Lechuga MD Small Bowel X-Ray 05/13/19 08:08 FINDINGS/IMPRESSION: Clinical Education Specialist image of the abdomen demonstrates a nonspecific, nonspecific bowel gas pattern. Enteric tube with tube tip projected over the gastric body. Gastrografin contrast was administered through the existing enteric tube. Abdominal radiographs were then obtained at 1 hour and 2 hours. There is opacification within the colon between 1 and 2 hours. A couple prominent loops of small bowel are demonstrated measuring up to 3.5 cm in diameter. D/ / Zuhair Pearson / Zuhair Pearson Interpreting Provider: Zuhair Pearson Chest X-Ray 05/13/19 19:22 IMPRESSION: No acute intrathoracic abnormality D/ / 05/13/2019 21:01:06 Ze Mccracken MD / [email or web address] Interpreting Provider: Ze Mccracken MD - Patient Status Disposition: Home, Self-Care Condition: Good Functional capacity at discharge: independent ambulation Overall status at discharge: patient is back to baseline - Discharge Instructions Follow Up With: NONE,PCP [Primary Care Provider] - Agustin Buckley MD [Partnered Physician] - Additional Instructions: Return to the emergency room for any recurrent nausea and vomiting - Diet and Activity Activity: increase activity as tolerated Diet: advance to your usual diet
[2019-05-14 10:58] VITALS: BP 106/55
--- NOTE | 2019-05-14 16:58 | Electrocardiograph Report ---
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
== END 2019-05-14 13:07 | disposition home or self-care (01) ==
LOC: 3ANU 20:08 → EMEROOARM 20:08 → 3ANU 23:37
PROVIDERS: ADMIT Surgery; ATTEND Surgery